=== PATIENT | male | born 1960 | race Hispanic/Latino ===

== ENCOUNTER → 2019-09-11 10:52 | Outpatient (CLI) | payer OTHER, SELFPAY ==
--- NOTE | ~2019-09-11 | MR_ITS ---
EXAMINATION: MR brain/brain stem wo/w con DATE: 09/11/2019 11:36 INDICATION: Dizziness and giddiness. TECHNIQUE: Magnetic resonance imaging (MRI) of the brain and brainstem was performed without and with 20 mL MultiHance intravenous contrast. Sequences included sagittal and axial T1-weighted FSE, axial diffusion-weighted FS EPI, axial T2*-weighted GRE, axial T2-weighted FLAIR Propeller, and axial T2-we ighted Propeller. Postcontrast sequences included axial and coronal T1-weighted FSE. Apparent diffusi on coefficient (ADC) maps were created. COMPARISON: None. FINDINGS: There are scattered areas of nonspecific increased T2-weighted signal intensity in the cere bral white matter, which is within normal limits for the patient's age. There is no intracranial hemo rrhage, acute infarction, or abnormal intracranial mass lesion. The ventricles are normal in size. Th e mastoid air cells are normal. The paranasal sinuses are clear. The orbits are normal. IMPRESSION: 1. Normal brain. Reviewed, dictated and finalized at location A. IMPRESSION: 1. Normal brain.
[2019-09-11 11:19] LABS: Estimated Glomerular Filt Rate > 60
== END ==
PROVIDERS: PCP Family Medicine; Visit Provider Physician Assistant
DX: R42 Dizziness and giddiness (principal); H53.9 Unspecified visual disturbance
CPT/HCPCS: 36415; 70553; A9577

== ENCOUNTER 2020-05-05 14:05 | Outpatient (CLI) | payer OTHER, SELFPAY ==
--- NOTE | 2020-05-05 | ECG_ITS ---
Measurements Intervals [place] Rate: 95 P: 55 ME: 154 QRS: -4 QRSD: 77 T: 86 QT: 263 QTc: 331 Interpretive Statements SINUS RHYTHM POSSIBLE LEFT ATRIAL ENLARGEMENT INCOMPLETE RIGHT BUNDLE BRANCH BLOCK BORDERLINE ST-T WAVE ABNORMALITY- HIGH LATERAL LEADS BASELINE ARTIFACT- II, III, AVF BORDERLINE ECG Electronically Signed On 05-05-2020 14:31:38 CDT by Andrew Armendariz D.O.
[2020-05-05 15:36] LABS: Anion Gap 6 mmol/L (8-16); Blood Urea Nitrogen 17 mg/dL (9-20); Carbon Dioxide 28 mmol/L (22-30); Chloride 106 mmol/L (98-107); Estimated Glomerular Filt Rate > 60; Glucose 110 mg/dL (75-110); Potassium 3.8 mmol/L (3.4-5.0); Sodium 140 mmol/L (137-145)
== END 2020-05-05 14:06 | disposition home or self-care (01) ==
PROVIDERS: PCP Family Medicine; Visit Provider Orthopaedic Surgery
DX: Z01.818 Encounter for other preprocedural examination (principal); I45.10 Unspecified right bundle-branch block
CPT/HCPCS: 36415; 80048; 93005

== ENCOUNTER 2020-05-11 13:39 | Outpatient (CLI) | payer OTHER, SELFPAY ==
[2020-05-11 14:27] LABS: Add Urine Microscopic? NO; Appearance Urine Clear (Clear); Bilirubin Urine Negative (Negative); Blood Urine Negative (Negative); Color Urine Yellow (Yellow); Glucose Urine UA Negative (Negative); Ketones Urine Negative (Negative); Leukocyte Esterase Ur Negative LEU/UL (NEGATIVE); Nitrate Urine Negative (Negative); Protein Urine Negative (Negative); Specific Grav Ur 1.009 (1.001-1.035); Urobilinogen Urine Negative mg/dL (<2.0)
[2020-05-11 14:27] LABS: Basophils Absolute Auto 0.1 K/mm3 (0.0-0.1); Basophils Percent Auto 0.9 % (0.2-1.2); Eosinophils Absolute Auto 0.4 K/mm3 (0-0.3); Eosinophils Percent Auto 4.8 % (0-4.4); Hemoglobin 17.2 g/dL (14.0-18.0); Hemoglobin A1C 5.3 % (<5.7); Immature Granulocyte Absolute 0.05 K/mm3 (0.00-0.031); Immature Granulocyte Percent A 0.5 % (0-0.5); Lymphocytes Absolute Auto 2.65 K/mm3 (0.9-3.2); Lymphocytes Percent Auto 28.8 % (18.3-44.2); Mean Corpuscular HGB Conc 34.4 g/dl (32-36); Mean Corpuscular Hemoglobin 29.9 pg (26-34); Mean Platelet Volume 10.9 fl (7.4-10.4); Monocytes Absolute Auto 0.7 K/mm3 (0.1-0.6); Monocytes Percent Auto 7.1 % (2.6-8.5); Neutrophils Absolute Auto 5.3 K/mm3 (1.3-6.7); Neutrophils Percent Auto 57.9 % (45.5-73.1); Platelet Count Result 215 k/mm3 (150-375); Red Blood Count 5.75 M/mm3 (4.6-6.20); Red Cell Distribution Width 12.4 % (11.5-14.5); White Blood Count 9.2 K/mm3 (4.5-10.0)
[2020-05-11 14:39] LABS: Potassium 3.9 mmol/L (3.4-5.0)
[2020-05-11 14:44] LABS: Alanine Aminotransferase 53 U/L (4-50); Albumin Level 4.5 g/dL (3.5-5.1); Alkaline Phosphatase 89 U/L (38-126); Anion Gap 4 mmol/L (8-16); Aspartate Amino Transferase 40 U/L (17-59); Blood Urea Nitrogen 12 mg/dL (9-20); Calcium 9.4 mg/dL (8.4-10.2); Carbon Dioxide 29 mmol/L (22-30); Chloride 105 mmol/L (98-107); Cholesterol 252 mg/dL (0-200); Estimated Glomerular Filt Rate > 60; Glucose 94 mg/dL (75-110); HDL Direct 49 mg/dL; Sodium 138 mmol/L (137-145); Triglycerides 174 mg/dL (<150)
[2020-05-11 14:50] LABS: LDL Cholesterol Direct 150 mg/dL
[2020-05-11 15:10] LABS: Prostate Specific Antigen 2.8 ng/mL (< OR = 4.0)
== END 2020-05-11 13:40 | disposition home or self-care (01) ==
PROVIDERS: PCP Family Medicine; Visit Provider Nurse Practitioner Family
DX: Z12.5 Encounter for screening for malignant neoplasm of prostate (principal); E78.2 Mixed hyperlipidemia; R73.01 Impaired fasting glucose; R35.1 Nocturia; I10 Essential (primary) hypertension; Z00.00 Encounter for general adult medical examination without abnormal findings
CPT/HCPCS: 36415; 80053; 80061; 81003; 83036; 84153; 84443; 85025; G0103

== ENCOUNTER 2020-09-15 11:48 | Outpatient (CLI) | payer OTHER, SELFPAY ==
[2020-09-15 12:13] LABS: Alanine Aminotransferase 44 U/L (4-50); Albumin Level 4.4 g/dL (3.5-5.1); Alkaline Phosphatase 90 U/L (38-126); Anion Gap 7 mmol/L (8-16); Aspartate Amino Transferase 36 U/L (17-59); Bilirubin,Total 1.5 mg/dL (0.2-1.3); Blood Urea Nitrogen 17 mg/dL (9-20); Calcium 9.6 mg/dL (8.4-10.2); Carbon Dioxide 25 mmol/L (22-30); Chloride 103 mmol/L (98-107); Cholesterol 179 mg/dL (0-200); Estimated Glomerular Filt Rate > 60; Glucose 89 mg/dL (65-110); HDL Direct 67 mg/dL; Potassium 4.1 mmol/L (3.4-5.0); Sodium 135 mmol/L (137-145); Triglycerides 92 mg/dL (<150)
[2020-09-15 12:25] LABS: LDL Cholesterol Direct 84 mg/dL
== END 2020-09-15 11:49 | disposition home or self-care (01) ==
PROVIDERS: PCP Family Medicine; Visit Provider Nurse Practitioner Family
DX: E78.2 Mixed hyperlipidemia (principal); I10 Essential (primary) hypertension
CPT/HCPCS: 36415; 80053; 80061

== ENCOUNTER 2021-01-17 09:51 | Outpatient (CLI) | payer OTHER, SELFPAY ==
[2021-01-17 10:24] LABS: Alanine Aminotransferase 50 U/L (4-50); Albumin Level 4.7 g/dL (3.5-5.1); Alkaline Phosphatase 86 U/L (38-126); Anion Gap 8 mmol/L (8-16); Aspartate Amino Transferase 37 U/L (17-59); Bilirubin,Total 1.2 mg/dL (0.2-1.3); Blood Urea Nitrogen 13 mg/dL (9-20); Calcium 9.5 mg/dL (8.4-10.2); Carbon Dioxide 28 mmol/L (22-30); Chloride 100 mmol/L (98-107); Estimated Glomerular Filt Rate > 60; Glucose 98 mg/dL (65-110); Sodium 136 mmol/L (137-145)
== END 2021-01-17 09:52 | disposition home or self-care (01) ==
LOC: ANHLAB 09:53
PROVIDERS: PCP Family Medicine; Visit Provider Nurse Practitioner Family
DX: I10 Essential (primary) hypertension (principal)
CPT/HCPCS: 36415; 80053

== ENCOUNTER → 2021-02-17 03:40 | Outpatient (CLI) | payer OTHER, SELFPAY ==
[2021-02-17 22:12] LABS: SARS-CoV-2 RNA PCR Negative
== END ==
PROVIDERS: PCP Family Medicine; Visit Provider Internal Medicine Gastroenterology
DX: Z01.812 Encounter for preprocedural laboratory examination (principal); Z20.822 Contact with and (suspected) exposure to COVID-19
CPT/HCPCS: C9803; U0003; U0005

== ENCOUNTER 2021-02-20 02:42 | Day surgery (SDC) | payer OTHER, SELFPAY ==
[2021-02-01 13:22] VITALS: BMI 34.5
--- NOTE | 2021-02-17 13:06 | PM.HPGS ---
History of Present Illness History of Present Illness Consent: Risks, benefits, and alternatives have been discussed and questions answered. Patient agrees to proceed with procedure. Chief complaint: GERD Narrative: Felton Rodriguez is a 60 year old male who Reports having a nagging, tickling feeling in the back of his throat that makes him clear his throat constantly. Symptoms have been going on for Several weeks and worsen with eating, drinking or speaking. he has a mild productive cough. Denies SOB, fever, sore throat, post nasal drainage, or dysphagia. He had been on famotidine 40 mg daily. This has been replaced with omeprazole. Review of Systems Review of Systems: All systems reviewed & are unremarkable except as noted in HPI and below PMFSH Past Medical History Medical History Chest pressure Dizziness Essential hypertension Mixed hyperlipidemia Rotator cuff tear, right Tear meniscus knee left Vision changes Family History Family History Mother Asthma Cerebrovascular accident Sibling Asthma Social History Social History Smoking status: Never smoker Alcohol intake: current Alcohol use details: social drinker Substance use: never Substance use type: does not use Living arrangements: with family Gender identity (if verbalized by the patient): Male Sexual Orientation (if Verbalized by the Patient): Straight or Heterosexual Meds Home Medications and Allergies Home Medications Medication Instructions Recorded Confirmed Type aspirin 81 mg tablet,delayed 81 mg PO DAILY #30 tablet 05/11/20 02/20/21 Rx release amlodipine 10 mg tablet 10 mg PO DAILY #90 tablet 08/03/20 02/20/21 Rx rosuvastatin 20 mg tablet 20 mg PO DAILY #90 tablet 08/03/20 02/20/21 Rx lisinopril 10 mg tablet See Rx Instructions .ROUTE 01/11/21 02/20/21 Rx .COMPLEX #90 tablet famotidine 20 mg tablet 40 mg PO DAILY tablet 01/17/21 02/20/21 History omeprazole 20 mg capsule,delayed 20 mg PO DAILY #30 cap 01/17/21 02/20/21 Rx release Allergies Allergy/AdvReac Type Severity Reaction Status Date / Time oxycodone Allergy Unknown barely Verified 02/20/21 09:47 conscious Exam Const: General: alert Orientation/consciousness: patient oriented x3 Resp: Auscultation: clear to auscultation bilaterally Cardio: Rhythm: regular rhythm GI: GI Palp: Yes Soft to palpation and No Tenderness to palpation present (GI) Neuro: General: patient oriented x3 Assessment and Plan Assessment and plan (1) GERD (gastroesophageal reflux disease): Qualifiers: Esophagitis presence: esophagitis presence not specified Qualified Code(s): K21.9 - Gastro-esophageal reflux disease without esophagitis Code(s): K21.9 - Gastro-esophageal reflux disease without esophagitis Status: Acute Assessment and Plan: EGD with possible biopsy or dilatation or cautery.
--- NOTE | 2021-02-20 08:25 | P.PNAN_ITS ---
Anes - Initial Pre Proc Eval Procedure: Operation Date: 02/20/21 11:00 Proposed Procedures p Esophagogastroduodenoscopy - Montrell Gr MD Date/Time: 02/20/21 08:25 Surgeon: Montrell Gr MD Pre Op Diagnosis: GERD Patient Data Age: 60 Gender: M Height: 1.7 m Weight: 100 kg Allergies Allergy/AdvReac Type Severity Reaction Status Date / Time oxycodone Allergy Unknown barely Verified 02/20/21 09:47 conscious Home Medications Medication Instructions Recorded Confirmed Type aspirin 81 mg tablet,delayed 81 mg PO DAILY #30 tablet 05/11/20 02/20/21 Rx release amlodipine 10 mg tablet 10 mg PO DAILY #90 tablet 08/03/20 02/20/21 Rx rosuvastatin 20 mg tablet 20 mg PO DAILY #90 tablet 08/03/20 02/20/21 Rx lisinopril 10 mg tablet See Rx Instructions .ROUTE 01/11/21 02/20/21 Rx .COMPLEX #90 tablet famotidine 20 mg tablet 40 mg PO DAILY tablet 01/17/21 02/20/21 History omeprazole 20 mg capsule,delayed 20 mg PO DAILY #30 cap 01/17/21 02/20/21 Rx release Patient hx anesthesia problems: none Family hx anesthesia problems: none Results Review: All pre-operative results and documents have been reviewed as part of the pre-operative evaluation. [facility] Past Medical History Medical History Chest pressure Dizziness Essential hypertension Mixed hyperlipidemia Rotator cuff tear, right Tear meniscus knee left Vision changes Family History Family History Mother Asthma Cerebrovascular accident Sibling Asthma Social History Social History Smoking status: Never smoker Alcohol intake: current Alcohol use details: social drinker Substance use: never Substance use type: does not use Living arrangements: with family Gender identity (if verbalized by the patient): Male Sexual Orientation (if Verbalized by the Patient): Straight or Heterosexual Anes - Eval Final PreProcedure Day of Procedure 02/20/21 08:25 Patient weight: obese Heart: regular rate and rhythm Lungs: clear to auscultation and normal air movement Airway: Mallampati scale class II Neurological: alert and oriented Last oral intake: >/= 8 hours ASA classification: III Emergent: no Anesthetic plan: proceed Anesthesia type and monitoring: general GIVS and standard monitoring Results Review: All pre-operative results and documents have been reviewed as part of the pre-operative evaluation. Informed Consent: The patient's anesthetic plan and its attendant risks and benefits were discussed with the patient/family/POA. Questions were solicited and answers provided to the satisfaction of the patient/family/POA.
[2021-02-20 09:49] VITALS: BP 156/88; PULSE 91; RESP 20; TEMP 37.1; O2SAT 99
[2021-02-20] MEDS: LACTATED RINGERS 1,000 ML 150 ML IV CONT (10:01)
[2021-02-20] MEDS: BENZOCAINE (*SP) 60 ML SPRAY CAN (HURRICAINE) 1 SPRAY MUCOUS MEM (10:44)
[2021-02-20 10:54] VITALS: BP 135/76; PULSE 84; RESP 20; O2SAT 96
[2021-02-20 11:04] VITALS: BP 128/84; PULSE 80; RESP 18; O2SAT 97
[2021-02-20 11:14] VITALS: BP 114/81; PULSE 82; RESP 20; O2SAT 99
== END 2021-02-20 11:34 | disposition home or self-care (01) ==
PROVIDERS: PCP Family Medicine; Visit Provider Internal Medicine Gastroenterology
PROC: 0DJ08ZZ Inspection of Upper Intestinal Tract, Via Natural or Artificial Opening Endoscopic (ICD-10-PCS; CPT 43235; principal; 2021-02-20 11:00)
DX: K21.9 Gastro-esophageal reflux disease without esophagitis (principal); I10 Essential (primary) hypertension; E78.2 Mixed hyperlipidemia; Z79.82 Long term (current) use of aspirin; E66.9 Obesity, unspecified; Z68.35 Body mass index [BMI] 35.0-35.9, adult
CPT/HCPCS: 43239; 87081; 88305; 88313; C9803; J2704; J7120; U0003; U0005

== ENCOUNTER 2021-03-06 10:05 | Outpatient (CLI) | payer OTHER, SELFPAY ==
--- NOTE | ~2021-03-06 | XR_ITS ---
EXAMINATION: XR barium swallow modified EXAM DATE: 03/06/2021 10:37 INDICATION: R13.10 - Dysphagia, unspecified. TECHNIQUE: Modified barium esophagram was performed by speech pathologist with radiologist Dr. Tenzin Kaye present to administered fluoroscopy. Speech pathologist administered barium in varying consis tencies as per speech pathologist documentation. This was recorded on tape. There was total fluorosc opic time of 0.8 minutes. The DAP for this procedure was 0.8 Gycm2. A total of 1 images sent to PAC S from the exam. FINDINGS: Oral stage: Adequate function. Pharyngeal phase: Adequate function. Laryngeal penetration: None. Aspiration: None. Laryngeal sensitivity: Present. IMPRESSION: Patient tolerated oral feedings in the upright position. Please refer to speech patholo gist findings and specific feeding recommendations. Reviewed, dictated and finalized at location A. L PADDER BLINDSTITCH IMPRESSION: Patient tolerated oral feedings in the upright position. Please r efer to speech pathologist findings and specific feeding recommendations.
--- NOTE | 2021-03-06 10:52 | STOPEVAL ---
Thank you for referring Felton Rodriguez to [facility].? Attending Provider: Montrell Gr MD MODIFIED BARIUM SWALLOW Assessment Status Assessment Status Evaluation Outpatient Past Medical History Past Medical History Source of Past Medical History Patient Neurological History Hx Neurological Disorders No Significant History Cardiovascular History Hx Hypercholesterolemia Yes Hx Hypertension Yes Respiratory History Hx Respiratory Disorders No Significant History Gastrointestinal History Hx Cholecystectomy Yes Hx Gastroesophageal Reflux Disease Yes Genitourinary History Hx Genitourinary Disorders No Significant History Musculoskeletal History Hx Arthritis Yes Hematological History Hx Hematological Disorders No Significant History Endocrine History Hx Endocrine Disorders No Significant History HEENT History Hx HEENT Disorders No Significant History Integumentary History Hx Skin Disorders No Significant History Reproductive History Hx Reproductive Disorders No Significant History Psychosocial History Hx Psychiatric Disorders No Significant History Pain History History of Any Previous or Ongoing No Significant History Instance of Pain Anesthesia History Hx Post-Op Nausea/Vomiting Yes Evaluation Information Problem Diagnosis Coughing after eating and drinking Onset Unknown Subjective Information The patient reports that he Query Text:As Reported By Patient/ occasionally coughs and has Family increased mucous after eating and drinking. He reports diagnosis of reflux and reports he has found he has to avoid mints, chocolate, caffeine, has to avoid eating or drinking after 7:30 pm, and has to use a wedge pillow to elevate head at night. Pain Assessment Timing of Pain Assessment Timing of Pain Assessment Assessment Self Report Self Report Pain Level 0 Pain Score Pain Score 0: Self Report Modified Barium Swallow Evaluation Consistency Solid Consistency 5 mL Method of Presentation Spoon Oral Preparatory Symptoms Within Functional Limits Oral Phase Symptoms Within Functional Limits Pharyngeal Phase Symptoms Within Functional Limits Severity of Vallecular Residue None - 0% No Residue Severity of Pyriform Sinus Residue None - 0% No Residue 8 Point Laryngeal Penetration-Aspiration Material Does Not Enter Airway Scale Cervical/Esophageal Symptoms Within Functional Limits Mixed Consistency 5 mL Method of Presentation Spoon Oral Preparatory
== END 2021-03-06 10:06 | disposition home or self-care (01) ==
PROVIDERS: PCP Family Medicine; Visit Provider Internal Medicine Gastroenterology
DX: R13.10 Dysphagia, unspecified (principal)
CPT/HCPCS: 92611

== ENCOUNTER 2021-11-13 11:27 | Outpatient (CLI) | payer OTHER, SELFPAY ==
--- NOTE | ~2021-11-13 | XR_ITS ---
XR hip RT 2V w AP pelvis 11/13/2021 12:22 Indication: Right hip pain Procedure: AP pelvis and 2 views right hip Comparison: No prior studies for comparison. Findings: Pelvic rings are intact. Mild osteoarthritis of the hips. Sacral foramen are symmetric. No fracture or traumatic malalignment. No significant soft tissue abnormality. No foreign bodies. Impression: 1: Mild bilateral symmetric osteoarthritis of the hips. Reviewed, dictated and finalized at location A. Impression: 1: Mild bilateral symmetric osteoarthritis of the hips.
[2021-11-13 12:36] LABS: Hematocrit 44.3 % (42.0-52.0); Hemoglobin 15.2 g/dL (14.0-18.0); Mean Corpuscular HGB Conc 34.3 g/dl (32-36); Mean Corpuscular Hemoglobin 29.9 pg (26-34); Mean Corpuscular Volume 87.2 fl (80-100); Mean Platelet Volume 11.1 fl (7.4-10.4); Platelet Count Result 185 k/mm3 (150-375); Red Blood Count 5.08 M/mm3 (4.6-6.20); Red Cell Distribution Width 12.2 % (11.5-14.5); White Blood Count 9.2 K/mm3 (4.5-10.0)
[2021-11-13 12:47] LABS: Alanine Aminotransferase 36 U/L (6-50); Albumin Level 4.2 g/dL (3.5-5.1); Alkaline Phosphatase 84 U/L (38-126); Anion Gap 7 mmol/L (8-16); Aspartate Amino Transferase 30 U/L (17-59); Bilirubin,Total 0.9 mg/dL (0.2-1.3); Blood Urea Nitrogen 20 mg/dL (9-20); Calcium 8.8 mg/dL (8.4-10.2); Carbon Dioxide 26 mmol/L (22-30); Chloride 104 mmol/L (98-107); Cholesterol 178 mg/dL (0-200); Estimated Glomerular Filt Rate > 60; Glucose 91 mg/dL (65-110); HDL Direct 58 mg/dL; Potassium 4.1 mmol/L (3.4-5.0); Sodium 137 mmol/L (137-145); Triglycerides 75 mg/dL (<150)
[2021-11-13 12:58] LABS: LDL Cholesterol Direct 97 mg/dL
[2021-11-13 13:13] LABS: Hemoglobin A1C 5.2 % (<5.7)
[2021-11-13 13:20] LABS: Prostate Specific Antigen 3.1 ng/mL (< OR = 4.0)
[2021-11-13 13:24] LABS: Appearance Urine Clear (Clear); Bilirubin Urine Negative (Negative); Blood Urine Negative (Negative); Color Urine Yellow (Yellow); Glucose Urine UA Negative (Negative); Ketones Urine Negative (Negative); Leukocyte Esterase Ur Negative LEU/UL (NEGATIVE); Nitrate Urine Negative (Negative); Protein Urine Negative (Negative); Specific Grav Ur 1.025 (1.001-1.035); Urobilinogen Urine 0.2 mg/dL (<2.0)
[2021-11-13 13:25] LABS: Add Urine Microscopic? NO
== END 2021-11-13 11:28 | disposition home or self-care (01) ==
PROVIDERS: PCP Family Medicine; Visit Provider Family Medicine
DX: Z00.00 Encounter for general adult medical examination without abnormal findings (principal); E78.2 Mixed hyperlipidemia; I10 Essential (primary) hypertension; R35.1 Nocturia; R73.01 Impaired fasting glucose; M16.0 Bilateral primary osteoarthritis of hip
CPT/HCPCS: 36415; 73502; 80053; 80061; 81003; 83036; 84153; 84443; 85027

== ENCOUNTER 2022-01-08 01:14 | Day surgery (SDC) | payer OTHER, SELFPAY ==
[2021-12-21 14:02] VITALS: BMI 35.2
--- NOTE | 2022-01-03 14:48 | PM.HPGS ---
History of Present Illness History of Present Illness Consent: Risks, benefits, and alternatives have been discussed and questions answered. Patient agrees to proceed with procedure. Chief complaint: neoplasm screening Narrative: Felton Rodriguez is a 61 year old male Was referred for colon cancer screening. His last colonoscopy was over 10 years ago. Review of Systems Review of Systems: All systems reviewed & are unremarkable except as noted in HPI and below PMFSH Past Medical History Medical History Chest pressure Dizziness Essential hypertension Mixed hyperlipidemia Obesity Rotator cuff tear, right Tear meniscus knee left Vision changes Family History Family History Mother Asthma Cerebrovascular accident Sibling Asthma Social History Social History Smoking status: Never smoker Alcohol intake: current Alcohol use details: socially Substance use: never Substance use type: does not use Living arrangements: with family Gender identity (if verbalized by the patient): Male Sexual Orientation (if Verbalized by the Patient): Straight or Heterosexual Spiritual care concerns: No Meds Home Medications and Allergies Home Medications Medication Instructions Recorded Confirmed Type aspirin 81 mg tablet,delayed 81 mg PO DAILY #30 tabs 05/11/20 01/08/22 Rx release (Adult Aspirin Regimen) famotidine 20 mg tablet 40 mg PO DAILY 01/17/21 01/08/22 History omeprazole 20 mg capsule,delayed 20 mg PO DAILY #30 caps 01/17/21 01/08/22 Rx release rosuvastatin 20 mg tablet (Crestor) 20 mg PO DAILY #90 tabs 08/25/21 01/08/22 Rx diclofenac sodium 75 mg 75 mg PO BID 11/13/21 01/08/22 History tablet,delayed release amlodipine 10 mg tablet 10 mg PO DAILY #90 tabs 12/14/21 01/08/22 Rx lisinopril 10 mg tablet See Rx Instructions .Route 12/14/21 01/08/22 Rx .COMPLEX #90 tabs Allergies Allergy/AdvReac Type Severity Reaction Status Date / Time oxycodone Allergy Unknown barely Verified 01/08/22 09:39 conscious Exam Const: General: alert Orientation/consciousness: patient oriented x3 Resp: Auscultation: clear to auscultation bilaterally Cardio: Rhythm: regular rhythm GI: GI Palp: Yes Soft to palpation and No Tenderness to palpation present (GI) Neuro: General: patient oriented x3 Assessment and Plan Assessment and plan (1) Colon cancer screening: Code(s): Z12.11 - Encounter for screening for malignant neoplasm of colon Status: Acute Assessment and Plan: Colonoscopy with possible biopsy or polypectomy or cautery or injection of substances.
--- NOTE | 2022-01-06 11:36 | WPDANESEPPF ---
Anes - Initial Pre Proc Eval Procedure: Operation Date: 01/08/22 11:00 Proposed Procedures p Screening Colonoscopy - Montrell Gr MD <Daquan Orlando MD - Last Filed: 01/10/22 17:22> Date/Time: 01/06/22 11:36 <Daquan Orlando MD - Last Filed: 01/10/22 17:22> Surgeon: Montrell Gr MD <Daquan Orlando MD - Last Filed: 01/10/22 17:22> Pre Op Diagnosis: neoplasm screening <Daquan Orlando MD - Last Filed: 01/10/22 17:22> Patient Data Age: 61 Gender: M Height: 1.7 m Weight: 102 kg <Daquan Orlando MD - Last Filed: 01/10/22 17:22> Allergies Allergy/AdvReac Type Severity Reaction Status Date / Time oxycodone Allergy Unknown barely Verified 01/08/22 09:39 conscious <Daquan Orlando MD - Last Filed: 01/10/22 17:22> Home Medications Medication Instructions Recorded Confirmed Type aspirin 81 mg tablet,delayed 81 mg PO DAILY #30 tabs 05/11/20 01/08/22 Rx release (Adult Aspirin Regimen) famotidine 20 mg tablet 40 mg PO DAILY 01/17/21 01/08/22 History omeprazole 20 mg capsule,delayed 20 mg PO DAILY #30 caps 01/17/21 01/08/22 Rx release rosuvastatin 20 mg tablet (Crestor) 20 mg PO DAILY #90 tabs 08/25/21 01/08/22 Rx diclofenac sodium 75 mg 75 mg PO BID 11/13/21 01/08/22 History tablet,delayed release amlodipine 10 mg tablet 10 mg PO DAILY #90 tabs 12/14/21 01/08/22 Rx lisinopril 10 mg tablet See Rx Instructions .Route 12/14/21 01/08/22 Rx .COMPLEX #90 tabs <Daquan Orlando MD - Last Filed: 01/10/22 17:22> Patient hx anesthesia problems: none <Noe Casey DO - Last Filed: 01/08/22 09:52> Family hx anesthesia problems: none <Noe Casey DO - Last Filed: 01/08/22 09:52> Results Review: All pre-operative results and documents have been reviewed as part of the pre-operative evaluation. <Daquan Orlando MD - Last Filed: 01/10/22 17:22> [facility] Past Medical History Medical History: Medical History Chest pressure Dizziness Essential hypertension Mixed hyperlipidemia Obesity Rotator cuff tear, right Tear meniscus knee left Vision changes <Daquan Orlando MD - Last Filed: 01/10/22 17:22> Family History Family History: Family History Mother Asthma Cerebrovascular accident Sibling Asthma <Daquan Orlando MD - Last Filed: 01/10/22 17:22> Social History Social History: Social History Smoking status: Never smoker Alcohol intake: current Alcohol use details: socially Substance use: never Substance use type: does not use Living arrangements: with family Gender identity (if verbalized by the patient): Male Sexual Orientation (if Verbalized by the Patient): Straight or Heterosexual Spiritual care concerns: No <Daquan Orlando MD - Last Filed: 01/10/22 17:22> Anes - Eval Final PreProcedure Day of Procedure 01/06/22 11:36 <Daquan Orlando MD - Last Filed: 01/10/22 17:22> Patient weight: obese <Daquan Orlando MD - Last Filed: 01/10/22 17:22> Heart: regular rate and rhythm <Daquan Orlando MD - Last Filed: 01/10/22 17:22> Lungs: clear to auscultation and normal air movement <Daquan Orlando MD - Last Filed: 01/10/22 17:22> Airway: Mallampati scale class II <Daquan Orlando MD - Last Filed: 01/10/22 17:22> Neurological: alert and oriented <Daquan Orlando MD - Last Filed: 01/10/22 17:22> Last oral intake: >/= 8 hours <Daquan Orlando MD - Last Filed: 01/10/22 17:22> ASA classification: III <Daquan Orlando MD - Last Filed: 01/10/22 17:22> Emergent: no <Daquan Orlando MD - Last Filed: 01/10/22 17:22> Anesthetic plan: proceed <Daquan Orlando MD - Last Filed: 01/10/22 17:22> Anesthesia type and tino
[2022-01-08 09:40] VITALS: BP 143/97; PULSE 74; RESP 18; TEMP 36.4; O2SAT 100
[2022-01-08] MEDS: LACTATED RINGERS 1,000 ML 150 ML IV CONT (09:49)
[2022-01-08] MEDS: SIMETHICONE ORAL SUSPENSION 20 MG/0.3 ML 30 ML BOTTLE 0.6 ML IRRIGATION (10:37)
[2022-01-08 10:52] VITALS: BP 107/72; PULSE 61; RESP 12; O2SAT 93
[2022-01-08 11:02] VITALS: BP 109/77; PULSE 64; RESP 23; O2SAT 98
[2022-01-08 11:12] VITALS: BP 125/84; PULSE 62; RESP 23; O2SAT 98
== END 2022-01-08 11:19 | disposition home or self-care (01) ==
PROVIDERS: PCP Family Medicine; Visit Provider Internal Medicine Gastroenterology
PROC: 0DJD8ZZ Inspection of Lower Intestinal Tract, Via Natural or Artificial Opening Endoscopic (ICD-10-PCS; CPT 45378; principal; 2022-01-08 11:00)
DX: Z12.11 Encounter for screening for malignant neoplasm of colon (principal); D12.5 Benign neoplasm of sigmoid colon; K64.8 Other hemorrhoids; I10 Essential (primary) hypertension; E78.2 Mixed hyperlipidemia; Z79.82 Long term (current) use of aspirin; E66.9 Obesity, unspecified; Z68.34 Body mass index [BMI] 34.0-34.9, adult
CPT/HCPCS: 45385; 88305; J2704; J7120

== ENCOUNTER 2022-06-01 10:26 | Outpatient (CLI) | payer OTHER, SELFPAY ==
[2022-06-01 10:54] LABS: Alanine Aminotransferase 47 U/L (6-50); Albumin Level 4.8 g/dL (3.5-5.1); Alkaline Phosphatase 89 U/L (38-126); Anion Gap 7 mmol/L (8-16); Aspartate Amino Transferase 37 U/L (17-59); Bilirubin,Total 1.6 mg/dL (0.2-1.3); Blood Urea Nitrogen 16 mg/dL (9-20); Calcium 9.3 mg/dL (8.4-10.2); Carbon Dioxide 27 mmol/L (22-30); Chloride 104 mmol/L (98-107); Estimated Glomerular Filt Rate > 60; Glucose 95 mg/dL (65-110); Sodium 138 mmol/L (137-145)
[2022-06-01 10:56] LABS: Hemoglobin A1C 5.3 % (<5.7)
== END 2022-06-01 10:27 | disposition home or self-care (01) ==
PROVIDERS: PCP Family Medicine; Visit Provider Physician Assistant
DX: R73.01 Impaired fasting glucose (principal); I10 Essential (primary) hypertension
CPT/HCPCS: 36415; 80053; 83036

== ENCOUNTER 2024-04-16 10:37 | Outpatient (CLI) | payer OTHER, SELFPAY ==
[2024-04-16 12:02] LABS: Influenza A QL RT-PCR Positive (Negative); Influenza B QL RT-PCR Negative (Negative); RSV RNA, RT-PCR Negative (Negative); SARS-CoV-2 RNA PCR Negative (Negative)
--- OUTSIDE RECORDS SUMMARY | 2024-04-16 12:12 | XMS_ITS | Referral Summary ---
Author Organization [facility] Address [address] [place] [address] Care Team Providers Care Sweatband Maker Name Role Phone Mehul Hill MD Primary Care Provider Social History Tobacco Use Types Packs/Day Years Used Date Smoking Tobacco: Never Assessed Personal Safety Answer Date Recorded Getting School Help Needed Not on file 04/27 Sex and Gender Information Value Date Recorded Sex Assigned at Not on file Legal Sex Male 10:47 PM CDT Gender Identity Not on file Sexual Orientation Not on file Plan of Treatment Not on file Insurance [employer] Care Teams Sweatband Maker Relationship Specialty Start Date End Date Mehul Hill MD [address] [facility] [address] [place] [address] PCP - General Family Medicine 02/17/18
--- OUTSIDE RECORDS SUMMARY | 2024-04-16 12:12 | XMS_ITS | Clinical Summary ---
Author Organization [facility] Address [facility] [place] [address] Care Team Providers Care Professor Of Historical Theology Name Role Phone Mehul Hill MD Primary Care Provider [phone] Allergies No known active allergies Medications famotidine 20 MG tablet Take 20 mg by mouth daily. Active aspirin 325 MG tablet Take 325 mg by mouth daily. Active meclizine (ANTIVERT) 25 MG tablet Take 1 tablet (25 mg total) by mouth 3 (three) times daily as needed. 15 tablet 4 Active ondansetron (ZOFRAN-ODT) 4 MG disintegrating tablet Take 1 tablet (4 mg total) by mouth every 8 (eight) hours as needed for Nausea. 20 tablet 5 Active Active Problems Problem Noted Date Diagnosed Date Vertigo 08/25/2019 Hypertension 08/25/2019 Resolved Problems Problem Noted Date Diagnosed Date Resolved Date Chest pain 08/25/2019 08/26/2019 Nausea & vomiting 08/25/2019 08/26/2019 Encounters Date Type Department Care Team Description 03/17/2024 Belanit Message Deb [facility] BUSINESS OFFICE [facility] Provider ACTION REQUIRED 02/29/2024 10:37 AM SPRAY GUNNER - 02/29/2024 1:50 PM SPRAY GUNNER Emergency [facility] Emergency Services [facility] [address] [address] Marisabel Thompson MD Weakness Discharge Disposition: Home or Self Care (Routine Discharge) 02/29/2024 Travel from Last 3 Months Family History Medical History Relation Comments Heart Disease Brother 1 Asthma Brother 2 COPD Brother 2 Heart Disease Mother Hypertension Mother Stroke Mother Hypertension Sister Relation Status Comments Brother 1 Alive Brother 2 Alive Mother Alive Sister Alive Social History Tobacco Use Types Packs/Day Years Used Date Smoking Tobacco: Never Smokeless Tobacco: Never Alcohol Use Standard Drinks/Week Comments Yes 0 (1 standard drink = 0.6 oz pur e alcohol) 2 beers a week. Sex and Gender Information Value Date Recorded Sex Assigned at Male 02/29/2024 10:33 AM SPRAY GUNNER Legal Sex Male 7:55 PM CDT Gender Identity Not on file Sexual Orientation Not on file Last Filed Vital Signs Vital Sign Reading Time Taken Comments Blood Pressure 170/109 02/29/2024 1:45 PM SPRAY GUNNER Pulse 68 02/29/2024 12:55 PM SPRAY GUNNER Temperature 36 C (96.8 F) 02/29/2024 11:06 AM SPRAY GUNNER Respiratory Rate 17 02/29/2024 12:5 5 PM SPRAY GUNNER Oxygen Saturation 94% 02/29/2024 1:45 PM SPRAY GUNNER Inhaled Oxygen Concentration - - Weight 107.5 kg (236 lb 15.9 oz) 2024 11:06 AM SPRAY GUNNER Height 170.2 cm (5' 7 ) 02/29/2024 11:0 6 AM SPRAY GUNNER Body Mass Index 37.12 02/29/2024 11:06 AM SPRAY GUNNER Plan of Treatment Health Maintenance Due Date Last Done Comments Colorectal Cancer Screening Colonoscopy (10 Years) 1960 Annual Physical 1964 Hepatitis C 11/06/1979 DTaP, Tdap and Td Vaccines ( 1 - Tdap) 1980 Zoster Vaccines (1 of 2) 11/06/2011 COVID-19 Vaccine (2023-2 5 season) 2023 Influenza Adult (#1) 2023 RSV Immunization or 60+ Years (1 - 1-dose 75+ series) 2036 Meningococcal B Vaccine Aged Out No l onger eligible based on patient's age to complete this topic Meningococcal Vaccine Aged Out No emily jr eligible based on patient's age to complete this topic Pneumococcal Vaccine: Pediat rics (0 to 5 Years) and At-Risk Patients (6 to 64 Years) Aged Out No longer eligible b ased on patient's age to complete this topic RSV Immunizations Under 20 Months Aged Out No longer eligible based on patient's age to complete this topic Procedures Procedure Name Priority Date/Time Associated Diagnosis Comments TROPONIN, QUANT STAT 02/29/2024 12:55 PM SPRAY GUNNER URINALYSIS AUTO DIP STAT 02/29/2024 1 2:55 PM SPRAY GUNNER XR CHEST PORTABLE STAT 02/29/2024 11: 17 AM SPRAY GUNNER INFLUENZA A & B STAT 02/29/2024 11:15 AM SPRAY GUNNER CORONAVIRUS (COVID 19) STAT 11:15 AM SPRAY GUNNER LIPASE STAT 02/29/2024 10:55 AM SPRAY GUNNER TROPONIN, QUANT STAT 02/29/2024 10:55 AM SPRAY GUNNER COMPREHENSIVE METABOLIC PANEL STAT 02/29/2024 10:55 AM SPRAY GUNNER CBC W/DIFF AUTOMATED STAT 02/29/2024 10:55 AM SPRAY GUNNER ECG 12-LEAD Routine 02/29/2024 10:44 AM SPRAY GUNNER from Last 3 Months Results * (ABNORMAL) URINALYSIS AUTO DIP (02/29/2024 12:55 PM SPRAY GUNNER) COLOR (U) YELLOW YELLOW 02/29/2024 1:25 PM SPRAY GUNNER [facility] TRANSPARENCY Clear CLEAR 02/29/2024 1:25 PM SPRAY GUNNER [facility] SPECIFIC GRAVITY (U) 1.015 1.010 - 1.025 02/29/2024 1:25 PM SPRAY GUNNER [facility] U PH 7.0 5.0 - 8.5 02/29/2024 1:25 PM SPRAY GUNNER [facility] LEUKOCYTES (U) NEGATIVE NEGATIVE 02/29/2024 1:25 PM SPRAY GUNNER [facility] NITRITES NEGATIVE NEGATIVE 02/29/2024 1:25 PM SPRAY GUNNER [facility] PROTEIN RANDOM (U) TRACE(A) NEGATIVE 02/29/2024 1:25 PM SPRAY GUNNER [facility] GLUCOSE (U) NEGATIVE NEGATIVE 02/29/2024 1:25 PM SPRAY GUNNER [facility] KETONES MG/DL (U) NEGATIVE NEGATIVE 02/29/2024 1:25 PM SPRAY GUNNER [facility] UROBILINOGEN 0.2 0.2 - 1.0 EU/DL 02/29/2024 1:25 PM SPRAY GUNNER [facility] BILIRUBIN (U) NEGATIVE NEGATIVE 02/29/2024 1:25 PM SPRAY GUNNER [facility] BLOOD (U) TRACE(A) NEGATIVE 02/29/2024 1:25 PM SPRAY GUNNER [facility] URINE SPECIMEN OBTAINED BY CLEAN CATCH PROCEDURE / Unknown 02/29/2024 12:55 PM SPRAY GUNNER Marisabel Thompson MD URINE ORDERABLES Final Result Performing Organization Address [facility]/ZIP Co de Phone Number [facility] [address] [facility] [place] [address], [place] * TROPONIN, QUANT (02/29/2024 12:55 PM SPRAY GUNNER) Only the most recent of2 resultswithin the time period is included. TROPONIN I HIGH SENSITIVITY 47 0 - 54 ng/L 02/29/2024 1:32 PM SPRAY GUNNER [facility] Comment: HIGH DOSES OF BIOTIN, TROPONIN-SPECIFIC AUTOANTIBODIES, AND ANTIBODY THERAPY CONTAINING HAMA MAY INTERFERE WITH THIS TEST RESULT. CORRELATION TO CLINICAL HISTORY AND PRESENTATION RECOMMENDED. 02/29/2024 12:5 5 PM SPRAY GUNNER us Marisabel Thompson MD LABORATORY Final Result Performing Organization Address [facility]/ZIP Co de Phone Number [facility] [address] [place] [address], [place] * XR CHEST PORTABLE (02/29/2024 11:17 AM SPRAY GUNNER) Anatomical Region Laterality Modality Chest Computed Tomogra phy 02/29/2024 11:2 0 AM SPRAY GUNNER Impressions 02/29/2024 11:21 AM SPRAY GUNNER IMPRESSION: No radiographic evidence of active chest disease. Referred By: Interpreted By: Abhi Jimenez MD, 02/29/2024 11:20 AM Narrative 02/29/2024 11:21 AM SPRAY GUNNER [address] [place] [address] Examination: XR CHEST PORTABLE Exam time: 02/29/2024 11:03 AM Clinical history: Weakness Comparison: 02/19/2023 chest x-ray Technique: AP view Findings: Multiple external wires and leads. Cardiac silhouette and pulmonary vasculature are within normal limits. Lungs appear clear. No evidence of pleural effusion. No evidence of pneumothorax. Procedure Note Abhi Jimenez MD - 02/29/[address] [place] [address] Examination: XR CHEST PORTABLE Exam time: 02/29/2024 11:03 AM Clinical history: Weakness Comparison: 02/19/2023 chest x-ray Technique: AP view Findings: Multiple external wires and leads. Cardiac silhouette andpulmonary vasculature are within normal limits. Lungs appear clear. Noevidence of pleural effusion. No evidence of pneumothorax. IMPRESSION: No radiographic evidence of active chest disease. Referred By: Interpreted By: Abhi Jimenez MD, 02/29/2024 11:20 AM Marisabel Thompson MD GENERAL IMAGING Final Result * CORONAVIRUS (COVID-19) MOLECULAR (02/29/2024 11:15 AM SPRAY GUNNER) CORONAVIRUS SARS COV 2 RNA NEGATIVE NEGATIVE 02/29/2024 11:58 AM SPRAY GUNNER [facility] Comment: NEGATIVE RESULTS DO NOT RULE OUT COVID 19 AND SHOULD NOT BE USED THE SOLE BASIS FOR TREATMENT OR PATIENT MANAGEMENT DECISIONS, INCLUDING INFECTION CONTROL DECISIONS. NEGATIVE RESULTS SHOULD BE CONSIDERED IN THE CONTEXT OF A PATIENT'S RECENT EXPOSURES, HISTORY AND THE PRESENCE OF CLINICAL SIGNS AND SYMPTOMS CONSISTENT WITH COVID 19. THE ID NOW COVID-19 2.0 TEST HAS BEEN AUTHORIZED BY THE FDA UNDER EAU FOR USE BY AUTHORIZED LABORATORIES. PERFORMED BY NUCLEIC ACID AMPLIFICATION FOR MOLECULAR QUALITATIVE DETECTION OF SARS-COV-2. SPECIMEN TYPE NASAL 02/29/2024 11:04 AM SPRAY GUNNER [facility] NASOPHARYNGEAL SWAB / Unknown 02/29/2024 11:15 AM SPRAY GUNNER us Marisabel Thompson MD MICROBIOLOGY - GENERAL ORDERABLE S Final Result Performing Organization Address [facility] de Phone Number [facility] [address] [place] [address], * INFLUENZA A & B (02/29/2024 11:15 AM SPRAY GUNNER) Pathologist [facility] SPECIMEN TYPE NASOPHARYNX 02/29/2024 11:04 AM SPRAY GUNNER [facility] INFLUENZA A NEGATIVE NEGATIVE 02/29/2024 11:58 AM SPRAY GUNNER [facility] INFLUENZA B NEGATIVE NEGATIVE 02/29/2024 11:58 AM SPRAY GUNNER [facility] NASAL STRUCTURE / Unknown 02/29/2024 11:15 AM SPRAY GUNNER us Marisabel Thompson MD MICROBIOLOGY - GENERAL ORDERABLE S Final Result Performing Organization Address [facility] de Phone Number [facility] [address] [place] [address], * (ABNORMAL) COMPREHENSIVE METABOLIC PANEL (02/29/2024 10:55 AM SPRAY GUNNER) GLUCOSE 113(H) 70 - 99 MG/DL 02/29/2024 11:29 AM SPRAY GUNNER [facility] BUN 14 7 - 18 MG/DL 02/29/2024 11:29 AM SPRAY GUNNER [facility] CREATININE S/P/B 1.08 0.50 - 1.20 MG/DL 02/29/2024 11:29 AM SPRAY GUNNER [facility] SODIUM S/P/B 138 136 - 145 MMOL/L 02/29/2024 11:29 AM SPRAY GUNNER [facility] POTASSIUM S/P/B 3.7 3.5 - 5.1 MMOL/L 02/29/2024 11:29 AM [facility] CHLORIDE S/P/B 102 100 - 108 MMOL/L 02/29/2024 11:29 AM [facility] CO2 27.7 21.0 - 32.0 MMOL/L 02/29/2024 11:29 AM [facility] CALCIUM S/P/B 8.3(L) 8.5 - 10.1 MG/DL 02/29/2024 11:29 AM [facility] BILIRUBIN TOTAL S/P/B 0.8 0.2 - 1.2 MG/DL 02/29/2024 11:29 AM [facility] Comment: THIS ASSAY IS NOT RECOMMENDED FOR PATIENTS UNDERGOING TREATMENT WITH ELTROMBOPAG DUE TO THE POTENTIAL FOR FALSELY ELEVATED RESULTS. TOTAL PROTEIN S/P/B 7.1 6.4 - 8.2 G/DL 02/29/2024 11:29 AM [facility] ALBUMIN S/P/B 3.6 3.4 - 5.0 G/DL 02/29/2024 11:29 AM [facility] AST 22 15 - 37 U/L 02/29/2024 11:29 AM [facility] ALT 34 16 - 60 U/L 02/29/2024 11:29 AM [facility] ALKALINE PHOSPHATASE S/P/B 103 50 - 136 U/L 02/29/2024 11:29 AM [facility] ANION GAP 8.3 5.0 - 15.0 MMOL/L 02/29/2024 11:29 AM [facility] BUN CREATININE RATIO 13.0 6 - 26 02/29/2024 11:29 AM [facility] A/G RATIO 1.0 1.0 - 2.5 RATIO 02/29/2024 11:29 AM [facility] GFR ESTIMATE 78(L) >90 ML/MIN/1.7 3 M2 02/29/2024 11:29 AM [facility] Comment: NOTE: eGFR is not calculated for patients <18 years of age. This is an estimated GFR calculation using the new CKD EPI creatinine equation without race and so does not require a correction factor for race. This estimated GFR should not be used for calculating drug doses. 02/29/2024 10:5 5 AM SPRAY GUNNER us Marisabel Thompson MD LABORATORY Final Result [facility] [address] [place] [address], * (ABNORMAL) CBC W/DIFF AUTOMATED (02/29/2024 10:55 AM SPRAY GUNNER) WBC 6.85 4.50 - 11.00 x10'3/uL 02/29/2024 11:11 AM SPRAY GUNNER [facility] RBC 5.49 4.50 - 5.90 x10'6/uL 02/29/2024 11:11 AM [facility] HGB 16.5 14.0 - 18.0 G/DL 02/29/2024 11:11 AM [facility] HCT 47.3 43.0 - 54.0 % 02/29/2024 11:11 AM [facility] MCV 86.2 80.0 - 100.0 FL 02/29/2024 11:11 AM [facility] MCH 30.1 26.0 - 34.0 PG 02/29/2024 11:11 AM [facility] MCHC 34.9 31.0 - 37.0 G/DL 02/29/2024 11:11 AM [facility] RDW 12.3 11.6 - 14.8 % 02/29/2024 11:11 AM [facility] PLT 220 130 - 400 x10'3/uL 02/29/2024 11:11 AM [facility] MPV 10.7 7.0 - 12.0 FL 02/29/2024 11:11 AM [facility] CBC COMMENT AUTOMATED RBC MORPHOLOGY AND PLATELET EVALUATION NORMAL 02/29/2024 11:11 AM [facility] NEUTROPHILS % 64.4 40.0 - 74.0 % 02/29/2024 11:11 AM [facility] LYMPHOCYTES % 21.0 14.0 - 46.0 % 02/29/2024 11:11 AM [facility] MONOCYTES % 6.1 4.0 - 13.0 % 02/29/2024 11:11 AM [facility] EOSINOPHILS 7.2(H) 0.0 - 7.0 % 02/29/2024 11:11 AM [facility] BASOPHILS 0.7 0.0 - 3.0 % 02/29/2024 11:11 AM [facility] IMMATURE GRANS % 0.6(H) 0.0 - 0.43 % 02/29/2024 11:11 AM [facility] NRBC % 0.0 % 02/29/2024 11:11 AM [facility]. NEUTROPHILS TOTAL 4.41 1.69 - 7.81 x10'3/uL 02/29/2024 11:11 AM [facility]. LYMPHOCYTES 1.44 0.21 - 5.42 x10'3/uL 02/29/2024 11:11 AM [facility] ABS. MONOCYTES 0.42 0.04 - 1.37 x10'3/uL 02/29/2024 11:11 AM [facility] ABS. EOSINOPHILS 0.49 0.00 - 0.68 x10'3/uL 02/29/2024 11:11 AM [facility] ABS. BASOPHILS 0.05 0.00 - 0.08 x10'3/uL 02/29/2024 11:11 AM [facility] ABS. IMMATURE GRANULOCYTES 0.04 0.00 - 0.06 x10'3/uL 02/29/2024 11:11 AM SPRAY GUNNER [facility] ABS. NUCLEATED RBC'S 0.00 0.00 - 0.01 x10'3/uL 02/29/2024 11:11 AM SPRAY GUNNER [facility] 02/29/2024 10:5 5 AM SPRAY GUNNER Marisabel Thompson MD LABORATORY Final Result Performing Organization Address [facility] Co de Phone Number [facility] [address] [place] [address], [place] * LIPASE (02/29/2024 10:55 AM SPRAY GUNNER) LIPASE 56 16 - 77 UNITS/L 02/29/2024 11:29 AM SPRAY GUNNER [facility] 02/29/2024 10:5 5 AM SPRAY GUNNER Marisabel Thompson MD LABORATORY Final Result Performing Organization Address [facility] de Phone Number [facility] [address] [place] [address], [place] * ECG 12 lead (02/29/2024 10:44 AM SPRAY GUNNER) 02/29/2024 10:4 4 AM SPRAY GUNNER Narrative [facility] - 02/29/2024 10:44 AM SPRAY GUNNER HFG Test Date: 2024-02-29 Pat Name: FELTON RODRIGUEZ Department: 100 Room: Gender: Male 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 : 1960 Requested By: MARISABEL THOMPSON Order Number: [id number] Reading MD: Caro Taylor Measurements Intervals [place] Rate: 69 P: 33 UT: 162 QRS: -12 QRSD: 100 T: 68 QT: 392 QTc: 422 Interpretive Statements SINUS RHYTHM NONSPECIFIC T-WAVE ABNORMALITY Y GUNNER Procedure Note Caro Taylor MD - 02/29/2024 [facility]G Test Date: 2024-02-29 Pat Name: FELTON JAIMEGO Department: 100 Room: Gender: Male 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 : 1960 Requested By: MARISABEL THOMPSON Order Number: [id number] Reading MD: Caro Taylor Measurements Intervals [place] Rate: 69 P: 33 UT: 162 QRS: -12 QRSD: 100 T: 68 QT: 392 QTc: 422 Interpretive Statements SINUS RHYTHM NONSPECIFIC T-WAVE ABNORMALITY Y GUNNER us Marisabel Thompson MD ECG ORDERABLES Final Result [facility] [address] [place] [address] from Last 3 Months Insurance [facility] Advance Directives * Full Code (Latest Code Status on File) Date Activated Date Inactivated Comments 08/25/2019 5:04 PM 08/26/2019 8:00 PM Care Teams Professor Of Historical Theology Relationship Specialty Start Date End Date Mehul Hill MD [address] [place] [address] PCP - General FAMILY PRACTICE 07/22/18
--- OUTSIDE RECORDS SUMMARY | 2024-04-16 12:12 | XMS_ITS | Clinical Summary ---
Author Organization [facility] al Address [address] [place] [address] Care Team Providers Care Mathematician Name Role Phone Mehul Hill MD Primary [...] file Insurance [employer] Care Teams Mathematician Relationship Specialty Start Date End Date Mehul Hill MD [address] [facility] [address] [place] [address] PCP - General Family Medicine 02/17/18
--- OUTSIDE RECORDS SUMMARY | 2024-04-16 12:12 | XMS_ITS | Encounter Summary ---
Author Organization [facility] Address [facility] [place] [address] Care Team Providers Care Reimbursement Counselor Name Role Phone Mehul Hill MD Primary Care Provider [phone] Encounter Details Date Type Department Care Team (Late st Contact Info) Description 03/17/2024 DotAlign Message Enc [facility] BUSINESS OFFICE [facility] Provider ACTION REQUIRED Social History Tobacco Use Types Packs/Day Years Used Date Smoking Tobacco: Never Smokeless Tobacco: Never Alcohol Use Standard Drinks/Week Comments Yes 0 (1 standard drink = 0.6 oz pur e alcohol) 2 beers a week. Sex and Gender Information Value Date Recorded Sex Assigned at Male 02/29/2024 10:33 AM BR[employer]GE [employer]WORK[employer] Legal Sex Male 7:55 PM CDT Gender Identity Not on file Sexual Orientation Not on file documented as of this encounter Functional Status * RETIRED Are you deaf or do you have serious difficulty hearing Answer Date of Assessment Author Status No 08/25/2019 4:56 PM CDT Activ e * RETIRED Are you blind or do you have serious difficulty seeing, even when wearing glasses? Answer Date of Assessment Author Status No 08/25/2019 4:56 PM CDT Activ e * Do you have serious difficulty walking or climbing stairs? Answer Date of Assessment Author Status No 08/25/2019 4:56 PM HEATHERT Radha Soria RN Active * Do you have difficulty dressing or bathing? Answer Date of Assessment Author Status No 08/25/2019 4:56 PM HEATHERT Radha Soria RN Active * Because of a physical, mental, or emotional condition, do you have difficulty doing errands alone such as visiting a doctor's office or shopping? Answer Date of Assessment Author Status No 08/25/2019 4:56 PM Radha Fernandez RN Active documented as of this encounter Mental Status * Because of a physical, mental, or emotional condition, do you have serious difficulty concentrating, remembering, or making decisions? Answer Entry Date Author Status No 08/25/2019 4:56 PM Radha Fernandez RN Active documented in this encounter Plan of Treatment Not on file documented as of this encounter Visit Diagnoses Not on filedocumented in this encounter Care Teams Reimbursement Counselor Relationship Specialty Start Date End Date Mehul Hill MD [address] [facility] [address] [place] [address] PCP - General FAMILY PRACTICE 07/22/18 documented as of this encounter
== END 2024-04-16 10:38 | disposition home or self-care (01) ==
LOC: ANHLAB 10:39
PROVIDERS: PCP Family Medicine; Visit Provider Family Medicine
DX: J06.9 Acute upper respiratory infection, unspecified (principal); Z20.822 Contact with and (suspected) exposure to COVID-19
CPT/HCPCS: 87637